=== PATIENT | female | born 1980 | race Two or more races ===

== ENCOUNTER 2018-11-23 10:16 | Emergency (ER) | payer SELFPAY ==
[2018-11-23] MEDS ORDERED: Lidocaine 1% (PF) 30 ML VIAL ONE (10:47)
== END 2018-11-23 11:48 | disposition home or self-care (01) ==
LOC: ERS 10:16
DX: L02.212 Cutaneous abscess of back [any part, except buttock and flank] (principal); F17.210 Nicotine dependence, cigarettes, uncomplicated
CPT/HCPCS: 10061; J2001

== ENCOUNTER 2018-11-25 10:50 | Emergency (ER) | payer SELFPAY ==
[2018-11-25] MEDS ORDERED: Bacitracin Zinc 1 Packet ONE (13:02)
== END 2018-11-25 13:19 | disposition home or self-care (01) ==
LOC: ERS 10:50
DX: Z48.817 Encounter for surgical aftercare following surgery on the skin and subcutaneous tissue (principal); F17.210 Nicotine dependence, cigarettes, uncomplicated; Z79.899 Other long term (current) drug therapy
CPT/HCPCS: 99282

== ENCOUNTER 2021-01-09 19:32 | Emergency (ER) | payer SELFPAY | END 2021-01-09 20:41 | disposition home or self-care (01) | LOC: ERS 19:32 | DX: K03.81 Cracked tooth (principal); K02.9 Dental caries, unspecified; F17.210 Nicotine dependence, cigarettes, uncomplicated | CPT/HCPCS: 99282 ==

== ENCOUNTER 2021-05-28 06:25 | Emergency (ER) | payer SELFPAY | END 2021-05-28 07:50 | disposition home or self-care (01) | LOC: ERS 06:25 | DX: K04.7 Periapical abscess without sinus (principal); K05.00 Acute gingivitis, plaque induced; F17.210 Nicotine dependence, cigarettes, uncomplicated | CPT/HCPCS: 96372; 99283; J1885 ==